=== PATIENT | female | born 1975 | race Caucasian/White ===

== ENCOUNTER 2023-10-16 10:58 | Outpatient (OUT) | payer OTHER, SELFPAY ==
--- NOTE | 2023-10-16 11:00 | US_ITS ---
[address] [address] Patient Name: CANDE KEITH MRN: [id number] date: 1975 Sex: F Assigned Patient Location: US Current Patient Location: Accession/Order Number: [id number] Exam Date: 10/16/2023 11:01 Report Date: 10/16/2023 12:53 At the request of: INDIA VELA Procedure: US pelvis w/ transvaginal EXAMINATION: US pelvis w/ transvaginal HISTORY: Polycystic Ovarian Syndrome E28.2 , heavy bleeding, painful periods COMPARISON: No relevant comparison available. TECHNIQUE: Transabdominal and/or transvaginal sonographic examination was performed as indicated by examination type. FINDINGS: UTERUS: Normal size and appearance. 1.8 cm nabothian cysts within nunez of cervix. Uterus size: 9.8 x 5.1 x 5.4 cm ENDOMETRIUM: Normal homogeneous appearance. Endometrial thickness: 14 mm RIGHT OVARY: Contains several small follicles, largest is exophytic and 1.1 cm in diameter. Duplex Doppler demonstrates normal waveform and flow; resistive index 0.5. Ovary size: 3.6 x 3.0 x 1.9 cm LEFT OVARY: Normal size and appearance. Duplex Doppler demonstrates normal waveform and flow; resistive index 0.5. Ovary size: 2.5 x 2.3 x 1.7 cm CUL-DE-SAC: Unremarkable. No significant free fluid. BLADDER: Unremarkable. OTHER: None. US/US pelvis w/ transvaginal IMPRESSION: 1. Endometrium is 14 mm in thickness which is upper limits of normal for premenopausal patient. 2. Several small follicles within right ovary. 3. No specific findings to suggest polycystic ovarian syndrome. Electronically authenticated by: TRUDY CARBAJAL Date: 10/16/2023 12:53
[2023-10-16 11:53] LABS: Basophils Absolute Auto 0.1 10^3/uL (0.0-0.1); Basophils Percent Auto 0.9 % (0.2-2.0); Eosinophils Absolute Auto 0.1 10^3/uL (0.0-0.7); Eosinophils Percent Auto 0.7 % (0.9-7.0); Hematocrit 37.7 % (36.0-48.0); Hemoglobin 11.3 g/dL (12.0-16.0); Immature Granulocytes Abs Auto 0.02 10^3/uL (0.00-0.03); Immature Granulocytes Pct Auto 0.3 % (0.0-0.5); Lymphocytes Absolute Auto 1.7 10^3/uL (1.2-3.8); Lymphocytes Percent Auto 22.4 % (20.5-60.0); Mean Corpuscular Hemoglobin 23.3 pg (26.7-34.0); Mean Corpuscular Volume 77.7 fL (81.0-99.0); Mean Platelet Volume 11.1 fL (9.5-13.5); Monocytes Absolute Auto 0.5 10^3/uL (0.3-0.8); Monocytes Percent Auto 6.4 % (1.7-12.0); Neutrophils Absolute Auto 5.2 10^3/uL (1.4-6.5); Neutrophils Percent Auto 69.3 % (43.0-75.0); Platelet Count 301 10^3/uL (150-450); Red Blood Count 4.85 10^6/uL (4.20-5.40); Red Cell Distribution Width 16.1 % (11.0-15.0); White Blood Count 7.5 10^3/uL (4.0-11.0)
[2023-10-16 12:41] LABS: Free T4 0.97 ng/dL (0.76-1.46)
[2023-10-16 12:47] LABS: HCG Quantitative <1 mIU/mL; Thyroid Stimulating Hormone 2.709 uIU/mL (0.358-3.740)
[2023-10-16 13:49] LABS: Estimated Average Glucose 108 mg/dL; Glycohemoglobin A1C 5.4 % (4.5-6.2)
[2023-10-17 08:13] LABS: FSH 10.6 mIU/mL (.); Luteinizing Hormone(LH) 7.1 mIU/mL (.)
[2023-10-21 19:12] LABS: DHEA, Serum 153 ng/dL (31-701)
== END 2023-10-16 10:59 | disposition home or self-care (01) ==
LOC: US 10:58
PROVIDERS: Visit Provider Obstetrics & Gynecology
DX: E28.2 Polycystic ovarian syndrome (principal); N92.0 Excessive and frequent menstruation with regular cycle
CPT/HCPCS: 36415; 76830; 76856; 82626; 82627; 83001; 83002; 83036; 84439; 84443; 84702; 85025

== ENCOUNTER 2023-11-10 11:08 | Outpatient (REF) | payer OTHER, SELFPAY | END 2023-11-10 11:09 | LOC: LAB 11:08 | PROVIDERS: Visit Provider Obstetrics & Gynecology | DX: N92.0 Excessive and frequent menstruation with regular cycle (principal) | CPT/HCPCS: 88305 ==

== ENCOUNTER 2024-01-11 10:19 | Outpatient (OUT) | payer OTHER, SELFPAY ==
--- NOTE | 2024-01-11 10:30 | ECG_ITS ---
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
== END 2024-01-11 10:20 | disposition home or self-care (01) ==
LOC: PST 10:19
PROVIDERS: Visit Provider Obstetrics & Gynecology
DX: Z01.810 Encounter for preprocedural cardiovascular examination (principal)
CPT/HCPCS: 93005

== ENCOUNTER 2024-01-13 10:45 | Outpatient (OUT) | payer OTHER, SELFPAY | END 2024-01-13 10:46 | disposition home or self-care (01) | LOC: PST 10:45 | PROVIDERS: Visit Provider Obstetrics & Gynecology | DX: Z01.818 Encounter for other preprocedural examination (principal); R93.89 Abnormal findings on diagnostic imaging of other specified body structures; R10.2 Pelvic and perineal pain; N92.0 Excessive and frequent menstruation with regular cycle ==

== ENCOUNTER 2024-01-22 09:52 | Day surgery (SDC) | payer OTHER, SELFPAY ==
[2024-01-22] VITALS (13 sets, daily range): BP systolic 109–161; BP diastolic 76–103; PULSE 78–115; TEMP 36.3–36.6; O2SAT 92–100; BMI 33.9
--- NOTE | 2024-01-22 10:00 | XR_ITS ---
[address] [address] Patient Name: CANDE KEITH MRN: [id number] date: 1975 Sex: F Assigned Patient Location: [facility] Current Patient Location: [facility] Accession/Order Number: [id number] Exam Date: 01/22/2024 10:00 Report Date: 01/22/2024 10:24 At the request of: INDIA VELA Procedure: XR chest 1V EXAM: XR chest 1V HISTORY: e-cigarette user COMPARISON: None. TECHNIQUE: AP view of the chest. FINDINGS: The cardiomediastinal silhouette is normal. The lungs are clear. There is no pneumothorax. No pleural effusion is noted. The osseous structures are intact. XR/XR chest 1V IMPRESSION: No acute cardiopulmonary process. Electronically authenticated by: SANCHEZ MARION Date: 01/22/2024 10:24
[2024-01-22 10:07] LABS: Basophils Percent Auto 0.4 % (0.2-2.0); Eosinophils Absolute Auto 0.1 10^3/uL (0.0-0.7); Eosinophils Percent Auto 0.9 % (0.9-7.0); Hematocrit 36.3 % (36.0-48.0); Hemoglobin 10.7 g/dL (12.0-16.0); Immature Granulocytes Abs Auto 0.02 10^3/uL (0.00-0.03); Immature Granulocytes Pct Auto 0.3 % (0.0-0.5); Lymphocytes Absolute Auto 1.6 10^3/uL (1.2-3.8); Mean Corpuscular HGB Conc 29.5 g/dL (29.9-35.2); Mean Corpuscular Hemoglobin 22.7 pg (26.7-34.0); Mean Corpuscular Volume 76.9 fL (81.0-99.0); Mean Platelet Volume 11.1 fL (9.5-13.5); Monocytes Absolute Auto 0.6 10^3/uL (0.3-0.8); Monocytes Percent Auto 7.9 % (1.7-12.0); Neutrophils Absolute Auto 5.1 10^3/uL (1.4-6.5); Neutrophils Percent Auto 68.5 % (43.0-75.0); Platelet Count 239 10^3/uL (150-450); Red Blood Count 4.72 10^6/uL (4.20-5.40); Red Cell Distribution Width 18.6 % (11.0-15.0); White Blood Count 7.5 10^3/uL (4.0-11.0)
--- OUTSIDE RECORDS SUMMARY | 2024-01-22 10:15 | XMS_ITS | CCD ---
Author Organization [facility] Care Team Providers Care Music Assistant Name Role Phone Luigi Berry Attending Unavailable Luigi Berry Admitting Unavailable Results Test Name Value Interpretation Reference Range Facil itmiley Josemanuel 11-10-2023 L Specimen: [id number] Received: 11/11/23 Status: SOUJeremi Kapadia Num: [id number] Spec Type: Surgical Subm Dr: Luigi Berry Tissues: A Endometrium - Biopsy (EMB) Procedures: HE/2, Gross/Micro L4 Age/ Patient Sex Location Account Attending Physician Lorenza Manning 48/F LABELL [id number] Luigi Berry SPEC NUM: [id number] RECD: 11/11/23 STATUS: BIANCA KAPADIA NUM: [id number] TRANG: 11/10/23 DR: Luigi Berry ENTERED: 11/11/[address] [facility] [address]: Winter,Lab SPEC TYPE: Surgical DEPT: AMNA PATEL ORDERED: HE/2, Gross/Micro L4 ORDERED: HE/2, Gross/Micro L4 Pathological Diagnosis Endometrial biopsy: - Slightly unevenly developed and/or persistent secretory endometrium of the late phase type, demonstrating marked stromal breakdown with many associated stromal granulocytes, and patchy mild stromal cell clumping, without obvious hyperplasia or atypia observable - However, there is incidental 1 small additionally noted endometrial polyp with superimposed simple hyperplasia without atypia (1 mm in size in the examination), demonstrating crowded aggregations of medium sized round glands with occasionally admixed small squamous morules, otherwise without any obvious mitotic activity identifiable Clinical Information Menorrhagia Gross Description Received in formalin labeled with the patient's name, date of and EM BX is a 2.8 x 2.2 x 0.3 cm aggregate of casiano-pace soft tissue fragments. Entirely submitted in one cassette labeled A1. ---- Specimen: [id number] Received: 11/11/23 Status: BIANCA Kapadia Num: [id number] Spec Type: Surgical Subm Dr: Luigi Berry Tissues: A Endometrium - Biopsy (EMB) Procedures: HE/2, Gross/Micro L4 ---- Patient: Lorenza Manning [id number] (Continued) ---- Specimen: [id number] Received: 11/11/23 (Continued) Signed (signature on file) Darian Palencia MD 11/12/23 180 ---- Specimen: [id number] Received: 11/11/23 Status: BIANCA Kapadia Num: [id number] Spec Type: Surgical Subm Dr: Luigi Berry Tissues: A Endometrium - Biopsy (EMB) Procedures: Sil REYNA/Emily L4 ---- Patient: Lorenza Manning [id number] (Continued) ---- Specimen: [id number] Received: 11/11/23 (Continued) CPT Codes 15727 ---- ---- Specimen: [id number] Received: 11/11/23 Status: BIANCA Kapadia Num: [id number] Spec Type: Surgical Subm : Luigi Esparza: A Endometrium - Biopsy (EMB) Procedures: Sil REYNA/Emily L4 ---- Patient: Lorenza Manning [id number] (Continued) ---- Signed (signature on file) Chin-Colin Palencia MD 11/12/23 180 [place] Encounters Encounter Date Encounter Type Care Provider Facility Start: 11-10-2023 End: 11-10-2023 ambulatory Luigi Kristi Facility:[facility] Payers Date Payer Category Payer Self-pay Summary Purpose Family History No Family History Records Found Advance Directives No Advanced Directives Records Found Additional Source Comments INFORMATION SOURCE (unrecogn ized section and content) DATE CREATED AUTHOR 12/08/2023 [facility] FOR RECORDS PERTAINING TO PATIENTS WHO ARE OR HAVE BEEN ENROLLED IN A CHEMICAL DEPENDENCY/SUBSTANCEABUSE PROGRAM, SOME INFORMATION MAY BE OMITTED. This clinical summary was aggregated from multiple sources. Caution should be exercised in using it in the provision of clinical care. This summary normalizes information from multiple sources, and as a consequence, information in this document may materially change the coding, format and clinical context of patient data. In addition, data may be omitted in some cases. CLINICAL DECISIONS SHOULD BE BASED ON THE PRIMARY CLINICAL RECORDS. [employer] provides no warranty or guarantee of the accuracy or completeness of information in this document.
[2024-01-22] MEDS: LACTATED RINGER'S SOLUTION 1,000 ML 50 ML IV (10:48)
[2024-01-22 11:00] LABS: HCG Quantitative <1 mIU/mL
--- NOTE | 2024-01-22 12:39 | PM.ONB ---
Brief Operative Note Date of procedure: 01/22/24 Pre-op diagnosis general: aub, thickend endometrium Post-op diagnosis: other (uterine fibroid, uterine polyp) Procedure: NAME OF PROCEDURE: [ D&c hysteroscopy with myosure with polypectomy and fibroidectomy] PROCEDURE: The patient was taken back to the Operating Room where she was prepped and draped in normal sterile fashion after being placed under general anesthesia without difficulty. She was also placed in the dorsal lithotomy position. A weighted speculum was placed in the patient?s vagina. The anterior lip of the cervix was identified and grasped with a single tooth tenaculum. The patient?s uterus was then sounded roughly to [? 8] cm. The patient was then gently dilated using Hegar dilators. The hysteroscope was passed through the patient?s cervix into the uterus. Both ostia were identified. fluffy appearing endometrium. No gross evidence of malignancy, small endometrial polyp and fibroids. The hysteroscope was then removed from the uterus. The endometrial curettings were sent out to pathology. The single tooth tenaculum was then removed from the patient's anterior lip of the cervix where excellent hemostasis was noted. All instruments were removed from the patient?s vagina. The patient tolerated the procedure well. Sponge, lap and needle counts were correct times two. The patient was taken to the Recovery Room in stable condition.Room in stable condition. Anesthesia: YASMINE Surgeon: Luigi Berry Estimated blood loss (mL): 5 Pathology: other (endometrial polyp and fibroid, endometrial currettings) Condition: stable Disposition: PACU Urinary Catheter Management Urinary Catheter Management Urethral: Cath placed during this visit: no
--- NOTE | 2024-01-22 13:28 | PC.NURSE ---
blood tinged urine
== END 2024-01-22 13:47 | disposition home or self-care (01) ==
PROVIDERS: Visit Provider Obstetrics & Gynecology
PROC: (CPT 00952; principal; 2024-01-22 11:30)
DX: R93.89 Abnormal findings on diagnostic imaging of other specified body structures (principal); R10.2 Pelvic and perineal pain; N92.0 Excessive and frequent menstruation with regular cycle; F17.290 Nicotine dependence, other tobacco product, uncomplicated; N84.0 Polyp of corpus uteri; Z79.84 Long term (current) use of oral hypoglycemic drugs
CPT/HCPCS: 00952; 58558; 36415; 71045; 84702; 85025; 88305; 99999; J1094; J2704